=== PATIENT | female | born 1970 | race Caucasian/White ===

== ENCOUNTER → 2018-08-28 07:25 | Outpatient (CLI) | payer SELFPAY ==
[2018-08-24 10:50] LABS: Mucous, Urine 0 SEEN /hpf (<or=2+)
[2018-08-24 11:20] LABS: Hematocrit 40.9 % (37-47); Hemoglobin 13.4 g/dl (12.0-15.0); Mean Corp Hgb Conc 32.8 g/gl (32-36); Mean Corpuscular Volume 88.5 fL (81-99); Mean Platelet Vol. 9.4 fl (6.2-12.0); Platelet Count 242 K/mm3 (150-450); RBC Distribution Width CV 13.5 % (11.6-14.6); RBC Distribution Width SD 43.7 fl (35.1-43.9); Red Blood Count 4.62 M/mm3 (4.2-5.4); White Blood Count 4.2 K/mm3 (4.4-11.0)
[2018-08-24 11:28] LABS: Color, Urine Yellow (Yellow); Glucose, Dipstick Normal (Normal); Ketone-Dipstick 5 mg/dl (Negative); Leukocyte Esterase-Dipstick Negative /ul (Negative); Nitrite-Dipstick Negative (Negative); Occult Blood-Urine 50 /ul (Negative); Protein-Dipstick Negative (Negative); Urine Bilirubin Dipstick Negative (Negative); Urine Clarity Clear (Clear); Urine Urobilinogen Normal (Normal)
[2018-08-24 11:32] LABS: Scan Indicated on CBC? Y/N NO
[2018-08-24 11:36] LABS: White Blood Cells 0-5 SEEN /hpf (0-5)
[2018-08-24 11:37] LABS: Bacteria RARE /hpf (None Seen); Red Blood Cells-Urine 5-10 SEEN /hpf (0-5); Squamous Epithelial Cells - UA 0-5 SEEN /hpf (5-10)
[2018-08-24 11:45] LABS: Hemoglobin A1c 5.6 % (4.2-6.3)
[2018-08-24 11:56] LABS: AST(SGOT) 21 U/L (15-37); Alanine Aminotransfer ALT/SGPT 33 U/L (13-56); Albumin, Serum 3.8 g/dL (3.2-5.0); Alkaline Phosphatase 33 U/L (45-117); Anion Gap 6 (5-15); BUN 16 mg/dL (7-18); BUN/Creat Ratio 19.5 RATIO (10-20); Chloride 106 mmol/L (98-107); Cholesterol 253 mg/dL (200); Creatinine, Serum 0.82 mg/dL (0.55-1.02); EST Glomerular Filtration Rate 79 mL/min (>60); Est Glom Filt Rate - Afr Amer 95 mL/min (>60); Globulin 3.7 g/dL (2.2-4.2); Glucose 92 mg/dL (74-106); High Density Lipoprotein 74 mg/dL; Potassium 4.1 mmol/L (3.5-5.1); Protein, Total 7.5 g/dL (6.4-8.2); Sodium Level 139 mmol/L (136-145); Thyroid Stim Hormone (TSH) 0.83 uIU/mL (0.358-3.74); Triglycerides 71 mg/dL; Very Low Density Lipoprotein 14 mg/dL (5-40)
[2018-08-24 12:01] LABS: Homocysteine 5.5 umol/L (3.2-10.7)
--- NOTE | 2018-08-24 12:12 | BI_ITS ---
MAMMOGRAPHY - BILATERAL SCREENING REASON FOR EXAM: Female, 48 years old. Routine annual screening examination. PERTINENT HISTORY: Non-contributory. TECHNIQUE: Digital bilateral breast laz (3D mammographic acquisition) in the CC and MLO projections. 2-D mediolateral oblique (MLO) and craniocaudad (CC) views of both breasts were obtained. CAD: Full Field Digital Mammography with Computer Added Detection was performed. COMPARISON: No comparison mammograms available at this time. If any prior films become available, an addendum to this report can be generated. FINDINGS: Breast Composition: The breasts are heterogeneously dense, which may obscure small masses. There are no dominant masses or suspicious calcifications. No other significant abnormalities are identified. BI/SCREENING MAMM (CAD), BILAT IMPRESSION: Negative screening mammogram. Yearly followup mammogram recommended. (A) ASSESSMENT CATEGORY: BIRADS Category 1: Negative. A letter regarding these results will be sent to the patient by the facility within 30 days. Approximately 10% of breast cancers are not detected by mammography. A normal mammogram should not delay biopsy of a clinically suspicious abnormality. [id number] Electronically Signed: Raza Ocasio, at 14:04 EDT , Service support ,
--- NOTE | 2018-08-28 07:30 | EKG12_ITS ---
Test Reason : EXEC PHYS Blood Pressure : / mmHG Vent. Rate : 061 BPM Atrial Rate : 061 BPM P-R Int : 138 ms QRS Dur : 084 ms QT Int : 408 ms P-R-T Axes : 041 071 055 degrees QTc Int : 410 ms Normal sinus rhythm Normal ECG Confirmed by AMY BRITO, ALEKSEY ([id number]), editor index MICHAEL FLEMING ([id number]) on 09/01/2018 1:48:05 PM Referred By: Miguel Ann Confirmed By:ALEKSEY REYES MD
--- NOTE | 2018-08-28 20:03 | BFS_ITS ---
Version 3 Reason For Study: Screening Carotid Duplex Ultrasound Abdominal Aorta The right maximum ICA velocity is 100.8/36.9 cm/s.The maximal outside diameter of the proximal aorta The left maximum ICA velocity is 104.7/49.9 cm/s. measures 1.46 x 1.38 cm in the cross-sectional The right ECA velocity is less than 125 cm/s. axis. The left ECA velocity is less than 125 cm/s. The maximal outside diameter of the proximal aorta There is insignificant plaque formation noted on measures 1.25 cm in the longitudinal axis. the right side. There is insignificant plaque formation noted on the left side. Interpretation Summary Normal carotid artery screening (0 to 15% narrowing). Normal aortic ultrasound exam. Performed By: Imani Rucker RVT
[2018-09-03 15:59] LABS: HPV Reflexed? NOT INDICATED
== END ==
PROVIDERS: Family Provider Family Medicine; PCP Family Medicine; Referring Provider Internal Medicine; Visit Provider Internal Medicine
DX: Z00.00 Encounter for general adult medical examination without abnormal findings (principal)
CPT/HCPCS: 36415; 77063; 77067; 80053; 80061; 81001; 82306; 83036; 83090; 84443; 85027; 88175; 93005; G0145

== ENCOUNTER → 2018-12-10 17:00 | Outpatient (CLI) | payer OTHER, SELFPAY ==
[2018-09-02 07:20] VITALS: BMI 26.7
--- NOTE | 2018-12-10 14:45 | EMB_PTH ---
PATIENT: JOHN COLEMAN LOC: [facility] U#:[id number] AGE/SX: 55/F ROOM: RE12/10/[address]: Dr. Laila Ayala MD : [id number] BED: DIS: SPEC #: [id number] RECD: 12/10/18 17:17 STATUS: TOVA REAbraham #: [id number] SOLIS: 12/10/18 14:[address]: Laila Baker DEPT: SURGICAL PATHOLOGY RECD BY: Yandel Villela ENTERED: 12/11/18 10:04 SP TYPE: ENDOM BX/C OT DR: Dr. Fritz Zhu DO Tissues: Endometrium, NOS Procedures: Surgery Specimen Level IV HEADER OPERATION: Endometrial biopsy PRE-OP DIAGNOSIS: N92.0 TISSUE SUBMITTED: Endometrium MICROSCOPIC DIAGNOSIS Endometrium, biopsy: Weakly proliferative endometrium. SJ:jason 12/14/18 MICROSCOPIC DESCRIPTION Slides are reviewed. GROSS DESCRIPTION Received in fixative is one container labeled with the patient's name and designated endometrial biopsy. The specimen consists of multiple irregular fragments of light stephenson soft tissue that in aggregate measure 2 x 1 x <0.1 cm. The specimen is totally submitted in one cassette. / AM:jason 12/11/18 TC:5 CPT: 91252
== END ==
PROVIDERS: Family Provider Family Medicine; PCP Family Medicine; Referring Provider Obstetrics & Gynecology; Visit Provider Obstetrics & Gynecology
DX: N92.0 Excessive and frequent menstruation with regular cycle (principal)
CPT/HCPCS: 88305